=== PATIENT | female | born 1975 | race Caucasian/White ===

== ENCOUNTER 2017-07-03 06:15 | Emergency (ER) | payer OTHER ==
[2017-07-03 06:56] LABS: ALANINE AMINOTRANSFERASE 31 IU/L (13-69); ALBUMIN 5.2 g/dl (3.3-4.9); ALKALINE PHOSPHATASE 53 IU/L (42-121); ASPARTATE AMINO TRANSFERASE 27 IU/L (15-46); BILIRUBIN,INDIRECT 0.4 mg/dl (0-1.1); BILIRUBIN,TOTAL 0.4 mg/dl (0.2-1.3)
[2017-07-03 07:29] LABS: HEPATITIS B SURFACE ANTIGEN NEGATIVE (NEGATIVE)
[2017-07-03 07:43] LABS: HIV 1&2 ANTIBODY NEGATIVE (NEGATIVE)
[2017-07-03 07:47] LABS: HEPATITIS C VIRAL ANTIBODY NEGATIVE (NEGATIVE)
[2017-07-03 09:59] LABS: HEPATITIS B SURFACE ANTIBODY NEGATIVE (NEGATIVE)
== END 2017-07-03 06:30 | disposition home or self-care (01) ==
LOC: E/R 06:15
DX: Z77.21 Contact with and (suspected) exposure to potentially hazardous body fluids (principal)
CPT/HCPCS: 80076; 86703; 86706; 86803; 87340; 99283

== ENCOUNTER 2018-01-08 19:40 | Emergency (ER) | payer BC ==
[2018-01-08] MEDS: IBUPROFEN 600 MG TAB PO (20:44)
[2018-01-08] MEDS: ACETAMINOPHEN 500 MG TAB PO (20:44)
[2018-01-08] MEDS: IPRATROPIUM (NEB) 0.5 MG/2.5 ML AMP NEB (20:45)
[2018-01-08] MEDS: ALBUTEROL 0.083% (NEB) 2.5 MG/3 ML AMP NEB (20:45)
== END 2018-01-08 22:20 | disposition home or self-care (01) ==
LOC: FTE 19:40
DX: J20.9 Acute bronchitis, unspecified (principal)
CPT/HCPCS: 71045; 93005; 94664; 99284-25

== ENCOUNTER 2018-03-23 05:19 | Emergency (ER) | payer BC ==
[2018-03-23] MEDS: IPRATROPIUM (NEB) 0.5 MG/2.5 ML AMP INH (05:43)
[2018-03-23] MEDS: ALBUTEROL 0.5% (NEB) 2.5 MG/0.5 ML AMP INH (05:44)
[2018-03-23] MEDS: METHYLPREDNISOLONE 125 MG INJ IV (05:52)
[2018-03-23 05:54] LABS: ADD MAN DIFF? NO
[2018-03-23 06:04] LABS: BASOPHIL # 0.1 10^3/ul (0.0-0.1); BASOPHILS % 1.3 % (0.0-2.0); EOSINOPHILS # 0.9 10^3/ul (0.0-0.5); EOSINOPHILS % 11.6 % (0.0-7.0); HEMATOCRIT 45.4 % (37.0-47.0); HEMOGLOBIN 15.3 g/dl (12.0-16.0); LYMPHOCYTES # 2.2 10^3/ul (0.8-2.9); LYMPHOCYTES % 29.1 % (15.0-51.0); MEAN CORPUSCULAR HEMOGLOBIN 30.6 pg (29.0-33.0); MEAN CORPUSCULAR HGB CONC 33.7 g/dl (32.0-37.0); MEAN CORPUSCULAR VOLUME 90.8 fl (82.0-101.0); MEAN PLATELET VOLUME 11.1 fl (7.4-10.4); MONOCYTE # 0.8 10^3/ul (0.3-0.9); MONOCYTES % 10.6 % (0.0-11.0); NEUTROPHIL # 3.5 10^3/ul (1.6-7.5); NEUTROPHILS % 47.3 % (39.0-77.0); PLATELET COUNT 287 10^3/UL (140-415); RED CELL DISTRIBUTION WIDTH 13.9 % (11.5-14.5)
[2018-03-23 06:04] LABS: WHITE BLOOD COUNT 7.5 10^3/ul (4.8-10.8)
[2018-03-23 06:26] LABS: BLOOD UREA NITROGEN 7 mg/dl (7-20); CALCIUM 9.8 mg/dl (8.4-10.2); CARBON DIOXIDE 23 mmol/L (21-31); CREATININE 0.75 mg/dl (0.44-1.00); Estimated GFR > 60 mL/min (>60); GLUCOSE 107 mg/dl (70-220); POTASSIUM 3.7 mmol/L (3.5-5.1); SODIUM 143 mmol/L (135-144)
[2018-03-23 07:22] LABS: ANION GAP 14 (5-13); CHLORIDE 106 mmol/L (97-110)
== END 2018-03-23 06:57 | disposition home or self-care (01) ==
LOC: E/R 05:19
DX: J45.901 Unspecified asthma with (acute) exacerbation (principal); R00.0 Tachycardia, unspecified; R06.82 Tachypnea, not elsewhere classified; J06.9 Acute upper respiratory infection, unspecified; Z87.891 Personal history of nicotine dependence
CPT/HCPCS: 36415; 71045; 80048; 85025; 93005; 94664; 96374; 99285-25

== ENCOUNTER 2018-06-04 18:26 | Emergency (ER) | payer BC ==
[2018-06-04] MEDS: DEXAMETHASONE 10 MG/ML 1 ML INJ PO (18:46)
[2018-06-04] MEDS: IPRATROPIUM (NEB) 0.5 MG/2.5 ML AMP NEB (19:20)
[2018-06-04] MEDS: ALBUTEROL 0.083% (NEB) 2.5 MG/3 ML AMP NEB (19:20)
== END 2018-06-04 19:22 | disposition home or self-care (01) ==
LOC: FTE 18:26
DX: J45.901 Unspecified asthma with (acute) exacerbation (principal)
CPT/HCPCS: 99283